=== PATIENT | female | born 1930 | race Caucasian/White ===

== ENCOUNTER 2017-09-11 16:01 | Observation (INO) | payer MEDICARE ==
[2017-09-11 16:38] LABS: #Eosinphils 0.2 thou/uL (0.0-0.7); #Lymphocytes 1.4 thou/uL (1.20-3.40); #Monocytes 0.3 thou/uL (0.11-0.59); #Neutrophils 3.1 thou/uL (1.40-6.50); %Eosinophils 3.6 % (0.0-10.0); %Lymphocytes 28.1 % (21.0-51.0); %Monocytes 6.3 % (0.0-10.0); %Neutrophils 61.1 % (42.0-75.0); Hemoglobin 12.7 g/dL (12.0-16.0); Mean Corpuscular HGB CONC 33.8 g/dL (32.0-36.0); Mean Corpuscular Hemoglobin 31.3 pg (27.0-31.0); Mean Corpuscular Volume 92.7 fl (81.0-99.0); Mean Platelet Volume 6.1 fL (7.4-10.4); Platelet Count 150 thou/uL (130-400); Red Blood Cell (RBC) Count 4.06 mill/uL (4.20-5.40)
[2017-09-11 16:56] LABS: ALT (SGPT) 18 U/L (8-55); AST (SGOT) 25 U/L (5-34); Albumin 3.7 g/dL (3.4-4.8); Alkaline Phosphatase 70 U/L (40-150); Anion Gap 13 mmol/L (10-20); BUN (Urea Nitrogen) 11 mg/dL (9.8-20.1); Bilirubin, Total 0.9 mg/dL (0.2-1.2); CK (CPK) 40 U/L (29-168); CKMB 1.4 ng/mL (0-6.6); Calc. Creatinine Clearance 0 mL/min (70-130); Calcium 9.1 mg/dL (7.8-10.44); Carbon Dioxide 28 mmol/L (23-31); Chloride 108 mmol/L (98-107); Estimated GFR-MDRD 69; Globulin 2.4 g/dL (2.4-3.5); Glucose 123 mg/dL (83-110); Lipase 21 U/L (8-78); Potassium 3.6 mmol/L (3.5-5.1); Protein, Total 6.1 g/dL (6.0-8.3); Sodium 145 mmol/L (136-145); Troponin I 0.029 ng/mL (< 0.028)
--- NOTE | 2017-09-11 17:01 | RAD ---
AP CHEST: Indication: Chest pain. Comparison: 01-01-17 FINDINGS: Mild cardiomegaly is stable. Chronic lung change is similar. Vascular calcification of the aortic arc h is stable. No acute osseous abnormality is evident. IMPRESSION: No acute cardiopulmonary abnormality. POS: [facility]
[2017-09-11 19:55] LABS: Troponin I 0.027 ng/mL (< 0.028)
[2017-09-11] MEDS ORDERED: Carvedilol 25 MG TAB PO SCH (23:00)
[2017-09-11] MEDS ORDERED: Carbidopa/Levodopa 10-100 mg Tablet PO SCH (23:00)
[2017-09-11] MEDS ORDERED: Lisinopril 20 MG TAB PO SCH (23:00)
[2017-09-11 23:11] LABS: Troponin I 0.045 ng/mL (< 0.028)
[2017-09-12 00:37] VITALS: BMI 22.0
[2017-09-12] MEDS ORDERED: Guaifenesin DM 100-10/5 ML UDCUP PO PRN (01:01)
[2017-09-12] MEDS ORDERED: Acetaminophen 325 MG TAB PO PRN (01:01)
[2017-09-12] MEDS ORDERED: HYDROcodone/Acetaminophen 10/325 mg Tablet PO PRN (01:01)
[2017-09-12] MEDS ORDERED: Sodium Chloride 0.9% 1,000 ML IV SCH (01:01)
[2017-09-12] MEDS ORDERED: Senokot 8.6 MG TAB PO PRN (01:01)
[2017-09-12] MEDS ORDERED: Baclofen 10 MG TAB PO PRN (01:01)
--- NOTE | 2017-09-12 02:53 | HP ---
REASON FOR ADMISSION: Chest pain. HISTORY OF PRESENT ILLNESS: The patient gives history of developing left-sided chest pain with whole body aches around 2:00 p.m. Her blood pressure was also elevated with systolic blood pressures in t he 230s. She initially thought her blood pressure monitor was broken. Her daughter got a new blood pressure monitor and the pressure was still elevated at 200/119. She started to feel dizzy and was s hort of breath. Finally, they called her primary care physician who asked her to go to the [facility] ER immediately. She gives history of having TAVR done 6 weeks back in [place] for her se kassandra aortic stenosis. Post-procedure, she felt good. The patient states she got exhausted with a lo t of things done in the last week. On Monday, she had blood work; on Monday, she was taken to [facility], and has had multiple workups done by her mirror machine feeder who did TAVR, Dr. Dewey; on Monday, the marciano chacko went to [place] for her [facility]. All the above traveling got her exhausted. Cur scotttly, has no chest pain at present. No fever as such. PAST MEDICAL AND SURGICAL HISTORY: Hypertension; dyslipidemia; recent TAVR, done 6 weeks back; right total hip replacement; appendectomy; history of colostomy with reversal; has had prior cardiac stent s; cholecystectomy; hysterectomy; history of TIAs. PERSONAL HISTORY: Does not abuse alcohol or drugs. No history of smoking. FAMILY HISTORY: Mother at the age of 63 years. She has had history of colon cancer and was a d iabetic as well. Father in his 70s. He has had diabetes. CURRENT MEDICATIONS: Aspirin 81 mg p.o. daily, Lipitor 20 mg p.o. daily, baclofen p.r.n., Sinemet 10 /100 mg p.o. twice daily, Coreg 25 mg twice daily, clonidine transdermal patch 0.1 mg once weekly, Pl avix 75 mg p.o. daily, [place] p.r.n. for pain, lisinopril 20 mg twice daily, Protonix 40 mg p.o. daily , venlafaxine 150 mg p.o. daily. ALLERGIES: BUPROPION, IODINE, MORPHINE, PENICILLIN, and ULTRAM. REVIEW OF SYSTEMS: The following complete review of systems was negative, unless otherwise mentioned in the HPI or below: Constitutional: Weight loss or gain, ability to conduct usual activities. Sk in: Rash, itching. Eyes: Double vision, pain. ENT/Mouth: Nose bleeding, neck stiffness, pain, te nderness. Cardiovascular: Palpitations, dyspnea on exertion, orthopnea. Respiratory: Shortness of breath, wheezing, cough, hemoptysis, fever or night sweats. Gastrointestinal: Poor appetite, abdom inal pain, heartburn, nausea, vomiting, constipation, or diarrhea. Genitourinary: Urgency, frequenc y, dysuria, nocturia. Musculoskeletal: Pain, swelling. Neurologic/Psychiatric: Anxiety, depressio n. Allergy/Immunologic: Skin rash, bleeding tendency. PHYSICAL EXAMINATION: GENERAL: The patient is an 87-year-old female who is currently not in any acute distress. VITAL SIGNS: Blood pressure 175/85 on arrival, pulse 82 per minute, respiratory rate 16 per minute, temperature 97.8 degrees Fahrenheit, saturating 96% on room air. NECK: Supple. No elevated JVD. HEENT: Eyes, extraocular muscles intact. Pupils are reacting to light. Oral cavity and mucous memb ranes are moist. No exudates or congestion. CARDIOVASCULAR: S1, S2 heard. Regular rhythm. RESPIRATORY: Air entry 1+ bilateral. No rales or rhonchi. ABDOMEN: Soft, bowel sounds heard. No tenderness, rigidity, or guarding. EXTREMITIES: No peripheral edema or calf tenderness. VASCULAR SYSTEM: Peripheral pulses 1+ bilateral. No ischemic ulcerations or gangrene. CENTRAL NERVOUS SYSTEM: No gross focal deficits seen. Patient is alert, awake, oriented well. PSYCHIATRIC: The patient's mood is euthymic. No hallucinations or delusions. LABORATORY AND X-RAY FINDINGS: EKG done shows normal sinus rhythm at 77 beats per minute, nonspecifi c ST-T wave changes were seen. Chest x-ray done shows no acute cardiopulmonary abnormalities. Tropo makenna I is indeterminate, peaking up to 0.04, CK-MB 1.4, albumin is 3.7, lipase is 21, BUN 11, creatini ne 0.7. Electrolytes are stable. White count of 5, hemoglobin and hematocrit 12 and 37, platelet co unt 150 with 61% neutrophils. CLINICAL IMPRESSION AND PLAN: The patient will be under observation on telemetry for chest pain with indeterminate cardiac enzymes. She has had coronary angiogram done in 12/[address] Castellano gabriel h showed [id number] coronary artery disease. This also showed severe aortic stenosis with valv e area of 0.8 cm. Since then, she has had transcatheter aortic valve replacement done 5 weeks back jane Ozuna. She has had uncontrolled hypertension as well and we will continue her home medication inc luding Coreg, lisinopril, clonidine patch as before. We will consult Dr. Castellano, her mirror machine feeder . We will obtain an echo with 2D Doppler for evaluation of post-transcatheter aortic valve replaceme nt left ventricular function and the valve. We will obtain BNP level as well for this morning. The patient appears to be exhausted from a lot of traveling that she did from Monday on. Code status wa s discussed and is FULL CODE. We will continue to closely monitor her on telemetry.
[2017-09-12 05:56] LABS: #Eosinphils 0.2 thou/uL (0.0-0.7); #Lymphocytes 1.7 thou/uL (1.20-3.40); #Monocytes 0.6 thou/uL (0.11-0.59); #Neutrophils 3.4 thou/uL (1.40-6.50); %Basophils 0.2 % (0.0-1.0); %Eosinophils 3.6 % (0.0-10.0); %Lymphocytes 28.9 % (21.0-51.0); %Monocytes 9.4 % (0.0-10.0); %Neutrophils 57.8 % (42.0-75.0); Mean Corpuscular Hemoglobin 31.7 pg (27.0-31.0); Mean Corpuscular Volume 96.1 fl (81.0-99.0); Mean Platelet Volume 6.7 fL (7.4-10.4); Platelet Count 167 thou/uL (130-400); RBC Distribution Width 12.6 % (11.5-14.5); Red Blood Cell (RBC) Count 4.09 mill/uL (4.20-5.40); White Blood Cell (WBC) Count 5.8 thou/uL (4.8-10.8)
[2017-09-12 06:24] LABS: Anion Gap 11 mmol/L (10-20); BUN (Urea Nitrogen) 13 mg/dL (9.8-20.1); Calc. Creatinine Clearance 51 mL/min (70-130); Calcium 9.5 mg/dL (7.8-10.44); Carbon Dioxide 30 mmol/L (23-31); Cardiac Risk 3.5 (Less than 4.5); Chloride 107 mmol/L (98-107); Cholesterol 162 mg/dl (< 200 Desired); Estimated GFR-MDRD 68; Glucose 110 mg/dL (83-110); HDL Cholesterol 46 mg/dL (>60 Neg Risk); LDL Cholesterol, Calculated 95 mg/dL; Potassium 3.9 mmol/L (3.5-5.1); Sodium 144 mmol/L (136-145); Triglycerides 104 mg/dL (Less than 150)
[2017-09-12] MEDS ORDERED: hydrALAZINE 20 MG/ML VIAL SLOW IVP PRN (06:29)
[2017-09-12 08:30] VITALS: TEMP 97.5
[2017-09-12 08:53] LABS: Troponin I 0.025 ng/mL (< 0.028)
[2017-09-12] MEDS ORDERED: cloNIDine 0.1mg/24 Hour PATCH TD SCH (09:00)
[2017-09-12] MEDS ORDERED: Famotidine 20 MG TAB PO SCH (09:00)
[2017-09-12] MEDS ORDERED: Enoxaparin Sodium 40 MG/0.4 ML SYRINGE SC SCH (09:00)
[2017-09-12] MEDS ORDERED: Carbidopa/Levodopa 10-100 mg Tablet PO SCH (09:00)
[2017-09-12] MEDS ORDERED: Aspirin 325 mg Enteric Coated Tablet PO SCH (09:00)
[2017-09-12] MEDS ORDERED: Clopidogrel Bisulfate 75 MG TAB PO SCH (09:00)
[2017-09-12] MEDS ORDERED: Carvedilol 25 MG TAB PO SCH (09:00)
[2017-09-12] MEDS ORDERED: Amlodipine 5 MG TAB PO SCH (09:00)
[2017-09-12] MEDS ORDERED: Nitroglycerin 0.2mg/Hour PATCH TD SCH (09:00)
[2017-09-12] MEDS ORDERED: Venlafaxine HCl XR 150 MG CAP PO SCH (09:00)
[2017-09-12] MEDS ORDERED: Lisinopril 20 MG TAB PO SCH (09:00)
[2017-09-12] MEDS ORDERED: Atorvastatin Calcium 20 MG TAB PO SCH (09:00)
--- NOTE | 2017-09-12 10:05 | CON ---
DATE OF CONSULTATION: 09/12/2017 REASON FOR CONSULTATION: Hypertension. HISTORY OF PRESENT ILLNESS: Ms. Padilla is a very pleasant 87-year-old woman who I have seen and evalu ated in the past. She has a history of aortic stenosis, status post TVAR. She recently presented wi th hypertension. She actually called the clinic yesterday and was going to be worked in. She procee ded to the emergency room. She has had chest tightness associated with her hypertension. Blood pres sure has been in the 180s to 200. The patient was last seen in the office on 08/04/2017. PAST MEDICAL HISTORY: Aortic stenosis, status post TAVR, coronary angiography on 12/2016 with mild t o moderate coronary artery disease, hypertension, hyperlipidemia, CAD status post stent placement. ALLERGIES: IODINE. HOME MEDICATIONS: Include Protonix, nitro patch, aspirin, Effexor, carbidopa/levodopa, Plavix, Turner , Xanax, atorvastatin, lisinopril, carvedilol, clonidine. REVIEW OF SYSTEMS: Ten point review of systems is reviewed and as above, otherwise negative. PHYSICAL EXAMINATION: VITAL SIGNS: Blood pressure 117/79, pulse 88, temperature 97.5. GENERAL: Patient is a pleasant female who is in no acute distress. The patient appears her stated ag e. NEUROLOGIC: The patient is alert and oriented times 3 with no focal neurologic deficits. HEENT: Sclerae without icterus. Mouth has moist mucous membranes with normal pallor. NECK: No JVD. Carotid upstroke brisk. No bruits bilaterally. LUNGS: Clear to auscultation with unlabored respirations. BACK: No scoliosis or kyphosis. CARDIAC: Regular rate and rhythm with normal S1 and S2. No S3 or S4 noted. No significant rubs, mur murs, thrills, or gallops noted throughout the precordium. PMI is not displaced. There is no parast ernal heave. ABDOMEN: Soft, nontender, nondistended. No peritoneal signs present. No hepatosplenomegaly. No abn ormal striae. EXTREMITIES: 2+ femoral and 2+ dorsalis pedis pulses. No cyanosis, clubbing, or edema. SKIN: No gross abnormalities. PERTINENT LABS: Hemoglobin 13, creatinine 0.8. Peak troponin 0.045. IMPRESSION: 1. Hypertensive urgency. 2. Chest tightness. 3. Aortic stenosis status post TAVR.. RECOMMENDATIONS: Ms. Padilla did have an angiogram performed within the last year with mild to moderat e coronary disease and patent stents. At this point, would continue current therapy as prescribed. Will add Norvasc 5 mg q.a.m. to her current regime. She is currently on DIANA inhibitor therapy and hi gh dose Coreg. Would also recommend a low sodium diet. Her last echo performed was dated 03/24/2017 .
[2017-09-12] MEDS ORDERED: Ondansetron HCl/PF 4 MG/2 ML Vial IVP PRN (11:23)
[2017-09-12 12:09] VITALS: BP 137/78
--- NOTE | 2017-09-13 07:05 | DIS ---
DATE OF ADMISSION: 09/12/2017 DATE OF DISCHARGE: 09/12/2017 CONDITION AT DISCHARGE: Stable and improved. PRIMARY DISCHARGE DIAGNOSIS: Chest pain. SECONDARY DIAGNOSES: Coronary artery disease, aortic stenosis, status post transcatheter aortic valv e replacement, coronary angiography on 12/2016 with mild to moderate coronary artery disease, hyperte nsion, hyperlipidemia, coronary artery disease status post stent placement. HISTORY OF PRESENT ILLNESS: Ms. Padilla is a patient who presented to the emergency room with chest pa in. She reports left side pain with whole body aches around 2:00 p.m. yesterday afternoon. Her bloo d pressure was also elevated with systolic blood pressure in the 230s. She initially thought her blo od pressure monitor was broken; however, with a new monitor, it was still elevated at 200/119. She h ad some dizziness and shortness of breath and eventually her primary care physician was called who to ld her to go to [facility] ER immediately. She has had multiple workups by electric wirer. At the emergency room, her blood pressure was controlled with nitropatch with improvement in her blo od pressure. She was also given hydralazine IV p.r.n. for systolic blood pressure greater than 180 a nd resume on her home regimen. Cardiac enzymes were trended and initially at 0.029, peaked up 0.045 and trended down to 0.025. She was also reviewed by her electric wirer, Dr. Castellano, for her hyperte nsive urgency and chest tightness. He recommended to continue present therapy and added Norvasc 5 mg q.a.m. to her current regimen. She was continued on her DIANA inhibitor and high dose of Coreg. He a lso encouraged a low sodium diet. Last echo on this patient was on 03/24/2017. Before discharge her blood pressure was well controlled with a blood pressure of 137/78. DISCHARGE MEDICATIONS: Amlodipine 5 mg oral daily, Venlafaxine 150 mg daily, pantoprazole 40 mg rafi y, Carvedilol 25 mg twice a day, carbidopa/levodopa 200 tablet oral twice a day, aspirin 81 mg daily, atorvastatin 20 mg daily, baclofen 10 mg as needed for pain, lisinopril 20 mg twice a day. PHYSICAL EXAMINATION: VITAL SIGNS: Stable, blood pressure as above. Refer to today's history and physical for more detail s. Sodium 144, potassium 3.9, chloride 107, carbon dioxide 30, anion gap 11, BUN 13, creatinine 0.8. WB C 5.8, hemoglobin 13, MCV 96.1, platelets 167. IMAGING: Chest x-ray, no acute cardiopulmonary abnormalities. PROCEDURES: None. DIET: Heart healthy. CONSULT: Cardiology. CARE GOAL: She is to follow up with her primary care physician within 1 week of discharge. She was instructed to return to the emergency room if she develop more chest pain, shortness of breath, light headedness, dizziness, or loss of consciousness. ACTIVITY: As tolerated. DISCHARGE TIME: 65 minutes including chart review and documentation.
== END 2017-09-12 14:39 | disposition home or self-care (01) ==
LOC: SCSER 16:01 → 2SW 17:23
PROVIDERS: ADMIT Family Medicine; ATTEND Family Medicine
DX: R07.89 Other chest pain (principal); I25.10 Atherosclerotic heart disease of native coronary artery without angina pectoris; I16.0 Hypertensive urgency; I10 Essential (primary) hypertension; E78.5 Hyperlipidemia, unspecified; E78.00 Pure hypercholesterolemia, unspecified; K21.9 Gastro-esophageal reflux disease without esophagitis; Z86.73 Personal history of transient ischemic attack (TIA), and cerebral infarction without residual deficits; Z79.82 Long term (current) use of aspirin; Z79.02 Long term (current) use of antithrombotics/antiplatelets; Z79.899 Other long term (current) drug therapy; Z80.0 Family history of malignant neoplasm of digestive organs; Z83.3 Family history of diabetes mellitus; Z88.0 Allergy status to penicillin; Z88.5 Allergy status to narcotic agent; Z88.8 Allergy status to other drugs, medicaments and biological substances; Z91.041 Radiographic dye allergy status; Z95.2 Presence of prosthetic heart valve; Z95.5 Presence of coronary angioplasty implant and graft; Z96.641 Presence of right artificial hip joint; Z90.49 Acquired absence of other specified parts of digestive tract; Z90.710 Acquired absence of both cervix and uterus; Z98.890 Other specified postprocedural states
CPT/HCPCS: 71045; 80048; 80053; 80061; 82550; 82553; 83690; 83880; 84484 ×3; 85025 ×2; 93005; 93306; 96372; 96374; 96375; 97139; 99285; G0378; 36415; A4216; J0360; J1650; J2405

== ENCOUNTER 2017-10-16 16:55 | Outpatient (CLI) | payer MEDICARE | END 2017-10-16 16:56 | disposition home or self-care (01) | LOC: BICRAD 16:55 | PROVIDERS: ATTEND Physician Assistant | DX: R06.02 Shortness of breath (principal); R05 Cough | CPT/HCPCS: 71046 ==

== ENCOUNTER 2018-03-07 07:11 | Outpatient (CLI) | payer MEDICARE ==
--- NOTE | 2018-03-07 08:18 | ULT ---
COMPLETE ABDOMINAL ULTRASOUND: HISTORY: An 87-year-old female with abdominal pain. FINDINGS: Liver echogenicity is somewhat coarse. There is no evidence for an identifiable gallbladder. The co mmon duct is unremarkable at 0.6 cm. No focal liver masses. The visualized pancreas, IVC, aorta, an d spleen are unremarkable, with the spleen at the upper range of normal in size. IMPRESSION: 1. No evidence for a gallbladder. Presumably, this is post cholecystectomy. 2. Slightly coarse liver echogenicity. 3. Borderline size spleen. 4. No other significant abnormality. POS: [facility]
== END 2018-03-07 07:12 | disposition home or self-care (01) ==
LOC: SCSULT 07:11
PROVIDERS: ATTEND Family Medicine
DX: R10.84 Generalized abdominal pain (principal); Z90.49 Acquired absence of other specified parts of digestive tract
CPT/HCPCS: 76700

== ENCOUNTER 2018-03-20 08:25 | Outpatient (CLI) | payer MEDICARE ==
--- NOTE | 2018-03-20 12:27 | CT ---
CT ABDOMEN WITH CONTRAST CT PELVIS WITH CONTRAST: DATE: 03-20-18 HISTORY: 87-year-old female with epigastric pain. COMPARISON: CT angiogram 09-29-16 TECHNIQUE: IV injection of iodinated contrast media: 70 ml of Isovue 370 Oral contrast media: 900 ml of Redicat 2 FINDINGS: There is a new metallic short stent at the region of the aortic valve. Lung bases are grossly clear. No pleural effusion, pneumoperitoneum or ascites. Approximately 1.5 cm hepatic cyst in hepatic segmen t 4A. Mild intrahepatic biliary ductal dilation, probably due to cholecystectomy. No other hepatic ab normality. Borderline splenomegaly, unchanged. No hydronephrosis. Bilateral nephrograms are symmetric al. Several small hyperdense foci, several mm in size each, at several bilateral renal calices, possi shaylee represent small renal calculi. These were not present on the prior CT. Alternatively, this could represent early contrast media excretion into the minor calices. Heavy atherosclerotic calcification of the abdominal aorta without aneurysm. Large number of diverticula throughout the sigmoid colon. Se kassandra streak artifact from metallic hardware for right hip replacement arthroplasty significantly part ially obscures the intrapelvic contents. There is fat stranding within the pelvic cavity posterior to a loop of sigmoid colon and anterior to the rectum (axial image 62 of 88, series 2). This could eith er represent post-surgical scar tissue or a small amount of free fluid with edema. This is partially obscured and difficult to evaluate. It appears slightly more prominent than on the previous CT, but t hat could be due to technical differences. There is a prominent duodenal diverticulum at the third st age of the duodenum filled with oral contrast material and some gas, partially displacing the pancrea tic head. The pancreas is atrophic. No signs of pancreatic neoplasm, pancreatic ductal dilatation or acute pancreatitis. No adrenal mass. No small bowel dilation. Absent uterus. IMPRESSION: 1. Moderate fat stranding and ill-defined, heterogeneous density in the pelvic cavity, which was pres ent previously in 2017. It may or may not be worse. It is uncertain whether this represents scar tiss ue or a small amount of free fluid with edema. 2. Status post hysterectomy. 3. Status post right hip replacement arthroplasty. 4. Large number of colonic diverticula. The findings mentioned above may or may not represent acute c olonic diverticulitis. This would not be consistent with the history, which states that the pain is e pigastric. 5. No acute findings in the upper abdomen. 6. Prosthetic aortic valve. COCO Simmons POS: [facility]
--- NOTE | 2018-03-20 12:48 | CT ---
CT CERVICAL SPINE WITHOUT CONTRAST: History: Chronic neck pain. Previous cervical fusion surgery. Comparison: None. Technique: Noncontrast cervical spine CT is performed in the axial plane. Reformatted images are subm itted. FINDINGS: Anterior fusion plate with transvertebral body screws at C3, C4, C5, and C6. Associated prosthesis at C3-4, C4-5 and C5-6 levels. No perihardware lucency. Cervical spine vertebral body height is maintai carolyn. No fractures. No prevertebral soft tissue swelling. Appropriate alignment of the lateral masses of C1 and C2 as well as the facets. Intact odontoid proce ss. Soft tissue neck structures are unremarkable. There is no prevertebral soft tissue swelling. There is calcified atherosclerotic changes in both carotid arteries. Lung apices are unremarkable. Limited evaluation of the contents of the cervical spine canal and neural foramina due to technique. C2-3: Generalized disc bulge results in mild central canal stenosis. Neural foramina are patent. C3-4: There is a broad based osteophyte ridge with a central component. Mild central canal stenosis. Degenerative changes in both uncal vertebral joints results in moderate right and minimal left forami nal narrowing. C4-5: There is a broad based osteophyte ridge. There appears to be at least mild central canal stenos is. There is some deformity of the thecal sac and ventral cord. Degenerative changes in both uncal ve rtebral joints results in moderate bilateral foraminal narrowing. C5-6: Broad based osteophyte ridge abuts the thecal sac. There is mild central canal stenosis. Degene rative change in bilateral vertebral joints results in moderate to severe bilateral foraminal narrowi ng. C6-7: No high grade central canal stenosis. Neural foramina are patent bilaterally. C7-T1: No high grade central canal stenosis or high grade foraminal narrowing. IMPRESSION: Post-operative and degenerative changes of the cervical spine as above. There are varying degrees of central canal stenosis and foraminal narrowing as detailed above. POS: [facility]
[2018-03-20] MEDS ORDERED: Iopamidol 370 76% 100 ML VIAL ONE (17:04)
== END 2018-03-20 08:26 | disposition home or self-care (01) ==
LOC: SCSCT 08:25
PROVIDERS: ATTEND Family Medicine
DX: R10.84 Generalized abdominal pain (principal); M47.22 Other spondylosis with radiculopathy, cervical region; M48.02 Spinal stenosis, cervical region; M99.81 Other biomechanical lesions of cervical region; R93.3 Abnormal findings on diagnostic imaging of other parts of digestive tract; K57.30 Diverticulosis of large intestine without perforation or abscess without bleeding; Z90.710 Acquired absence of both cervix and uterus; Z96.641 Presence of right artificial hip joint; Z98.1 Arthrodesis status; Z95.2 Presence of prosthetic heart valve
CPT/HCPCS: 72125; 74177

== ENCOUNTER 2018-08-09 15:08 | Outpatient (CLI) | payer MEDICARE ==
--- NOTE | 2018-08-09 17:24 | CT ---
CT CERVICAL SPINE NONCONTRAST: HISTORY: Chronic back pain. FINDINGS: There is osteophytosis throughout the vertebral bodies and facets. Vertebral body height and alignme nt of the thoracic spine are intact. There is disk space narrowing throughout the lower levels with gas-disk phenomenon at the lowest three levels. No fracture-dislocation of the thoracic spine is gelacio arent. No traumatic disk herniation. Postoperative changes of the cervical spine partially visualized. At the partially visualized upper lumbar spine, there is disk space narrowing and minimal degenerativ e retrolisthesis at the L1-L2 level, with minimal chronic appearing superior endplate compression. Calcification is present throughout the arterial structures. IMPRESSION: 1. Degenerative changes, thoracic spine, without acute osseous abnormalities demonstrated. 2. Minimal chronic appearing compression of the L2 superior endplate of the upper lumbar spine, wher e degenerative changes are also present. 3. Atherosclerosis. POS: [facility]
== END 2018-08-09 15:09 | disposition home or self-care (01) ==
LOC: SCSCT 15:08
DX: M54.6 Pain in thoracic spine (principal); M47.814 Spondylosis without myelopathy or radiculopathy, thoracic region; I70.90 Unspecified atherosclerosis
CPT/HCPCS: 72128

== ENCOUNTER 2019-02-12 14:16 | Outpatient (CLI) | payer MEDICARE ==
--- NOTE | 2019-02-12 14:57 | RAD ---
XR Knee Rt 3 View: 02/12/2019 12:00 AM CLINICAL INDICATION: Right knee pain COMPARISON: None. FINDINGS: Bones: There is diffuse osteopenia. Joints: There is moderate medial femorotibial joint compartmental narrowing with mild varus malalignm ent. There are marginal osteophytes affecting all major compartments of the right knee.. Soft Tissue: There is severe vascular calcification seen within the posterior soft tissues of the rig ht orbit from the.. IMPRESSION: Moderate to severe osteoarthrosis of the right knee..
--- NOTE | 2019-02-12 14:58 | RAD ---
XR Knee Lt 3 View: 02/12/2019 12:00 AM CLINICAL INDICATION: Left knee pain COMPARISON: None. FINDINGS: Bones: There is diffuse osteopenia. No acute fracture or subluxation demonstrated. Joints: There is mild medial femorotibial joint compartment narrowing. There are small marginal osteo phytes affecting all major compartments of the left knee. No joint capsular distention is evident.. Soft Tissue: There is prominent vascular calcification involving the posterior soft tissues.. IMPRESSION: Mild osteoarthrosis of the left knee..
== END 2019-02-12 14:17 | disposition home or self-care (01) ==
LOC: BICRAD 14:16
PROVIDERS: ATTEND Anesthesiology
DX: M25.561 Pain in right knee (principal); M25.562 Pain in left knee; M17.0 Bilateral primary osteoarthritis of knee

== ENCOUNTER 2019-04-16 16:08 | Outpatient (CLI) | payer MEDICARE ==
--- NOTE | 2019-04-16 18:03 | CT ---
EXAM: CT LUMBAR SPINE WITHOUT CONTRAST: 04/16/19 HISTORY: Severe chronic low back pain. No reported trauma. COMPARISON: None. FINDINGS: There is diffuse bone demineralization. Lumbar spine vertebral body height is maintained. There is n o fracture. No spondylolisthesis. No spondylolysis. There are five lumbar type vertebrae. Pseudoarthr osis of the left L5 ala with the sacrum. There is vacuum disc phenomenon throughout the entire lumbar disc spaces. The visualized lung parenchyma is unremarkable. There is atherosclerosis of a nonaneury smal aorta. The visualized solid organs are grossly unremarkable. The visualized alimentary canal is also grossly unremarkable. Gallbladder appears to be surgically absent. Evaluation of the solid organ s and alimentary canal is limited due to motion and lack of contrast administration. Diverticulosis i n the sigmoid colon, without evidence of diverticulitis. Questionable mucosal thickening involving th e sigmoid colon and distal descending colon. Nonemergent colonoscopy is recommended. Sacrum is intact. The visualized bony pelvis does not demonstrate a fracture. Limited evaluation of the contents of the central spinal canal and neural foramina due to technique. T11-T12: No significant central canal stenosis. Moderate bilateral foraminal narrowing. T12-L1: Generalized disc bulge. Mild central canal stenosis. Mild bilateral foraminal narrowing. L1-L2: Vacuum disc phenomenon. Broad based disc bulge, ligamentum flavum thickening and facet hypert rophy result in mild central canal stenosis. Moderate bilateral foraminal narrowing. L2-L3: Broad based disc bulge, ligamentum flavum thickening, facet hypertrophy result in moderate dalton tral canal stenosis. Moderate bilateral foraminal narrowing. L3-L4: Broad based disc bulge, ligamentum flavum thickening, facet hypertrophy result in severe centr al canal stenosis. Severe right and moderate left foraminal narrowing. L4-L5: Broad based disc bulge, ligamentum flavum thickening and facet hypertrophy result in moderate to severe central canal stenosis. There is a left hemilaminotomy defect. Moderate right and moderate to severe left neural foraminal narrowing. L5-S1: Vacuum disc phenomenon. Broad based disc bulge, ligamentum flavum thickening and facet hypertr ophy result in moderate to severe central canal stenosis. Mild to moderate bilateral foraminal narrow ing. Spondylolisthesis: 1.5 mm of retrolisthesis of L1 upon L2. IMPRESSION: 1. Multilevel degenerative changes of the lumbar spine as detailed above. Barring any contraindi cations, better interrogation with lumbar spine MRI is recommended. 2. Mucosal abnormality involving the colon, incompletely evaluated. Consider colonoscopy. POS: [facility]
== END 2019-04-16 16:09 | disposition home or self-care (01) ==
LOC: SCSCT 16:08
PROVIDERS: ATTEND Anesthesiology
DX: M47.26 Other spondylosis with radiculopathy, lumbar region (principal)
CPT/HCPCS: 72131

== ENCOUNTER 2020-02-14 10:12 | Outpatient (CLI) | payer MEDICARE ==
--- NOTE | 2020-02-14 10:38 | RAD ---
XR Knee Rt 3 View: 02/14/2020 12:00 AM CLINICAL INDICATION: Right knee pain COMPARISON: Prior exam dated February 12, 2019 FINDINGS: Bones: No acute fracture is demonstrated. Joints: There is severe medial femorotibial joint compartmental narrowing with varus malalignment of the right knee. There are prominent marginal osteophytes affecting the major compartments of the right knee. There is mild joint capsular distention.. Soft Tissue: There are severe vascular calcifications seen involving the visualized vasculature.. IMPRESSION: Severe right knee osteoarthrosis. The degree of osteoarthrosis appears to have mildly progressed from the comparison examination dated February 12, 2019.
== END 2020-02-14 10:13 | disposition home or self-care (01) ==
LOC: BICRAD 10:12
PROVIDERS: ATTEND Anesthesiology
DX: M25.561 Pain in right knee (principal); M25.562 Pain in left knee; M17.11 Unilateral primary osteoarthritis, right knee